=== PATIENT | male | born 1975 | race Caucasian/White ===

== ENCOUNTER 2018-04-08 19:44 | Emergency (ER) | payer BC, OTHER ==
[~2018-04-08] VITALS: Ht 198.1 cm; Wt 99.8 kg
--- NOTE | ~2018-04-08 | EKG ---
[address] [address] ELECTROCARDIOGRAM REPORT Name: ARACELI GONZALEZ Room #: DEP [facility]#: [id number] Admission: 04/08/18 Attend Phys: Discharge: 04/08/18 Date of : 79 Report #: [id number] THIS REPORT FOR: //name// [facility] ED Test Date: 2018-04-08 Test Time: 20:17:11 Pat Name: ARACELI GONZALEZ Department: Room: Gender: M [employer]: DOMINIK : 1975 Requested By: Monty Jiménez Order Number: [id number] MD: Galileo Farias Measurements Intervals [place] Rate: 106 P: 49 UT: 163 QRS: 70 QRSD: 93 T: 39 QT: 325 QTc: 432 Interpretive Statements Sinus tachycardia Otherwise no significant abnormality Baseline wander in lead(s) V1 Compared to ECG 01/23/2016 02:06:01 No significant change was found Electronically Signed On 04-09-2018 8:22:25 CDT by Galileo Farias [email or web address] <ELECTRONICALLY SIGNED> By: Galileo Farias MD, [facility] [id number] Galileo Farias MD, [facility] /EPI
[~2018-04-08 19:44] MED LIST: LANTUS100 UNIT/M SUBQ; PRINIVIL20 M1 PO; VITAMIN E400 UNIT PO
[2018-04-08 20:30] LABS: ABSOLUTE NEUTROPHILS 10.3 thou/uL (1.4-8.2); BASOPHILS 0.7 % (0.0-2.0); EOSINOPHILS 1.4 % (0.0-3.0); HEMATOCRIT 46.6 % (42.0-52.0); HEMOGLOBIN 16.3 gm/dL (14.0-18.0); LYMPHOCYTES 10.4 % (24.0-44.0); MCH 32.2 pg (26.0-34.0); MCV 92.1 fL (80.0-100.0); MONOCYTES 6.5 % (1.0-8.0); PLATELET COUNT 197 thou/uL (150-400); RBC 5.06 mil/uL (4.50-6.00); RDW 13.1 % (10.5-14.5); WBC 12.7 thou/uL (4.0-11.0)
[2018-04-08 20:39] LABS: ANION GAP 11 mmol/L (7-16); BUN 10 mg/dL (7-18); CALCIUM 9.1 mg/dL (8.5-10.1); CHLORIDE 97 mmol/L (98-107); CO2 25 mmol/L (21-32); GLUCOSE 251 mg/dL (74-106); SODIUM 133 mmol/L (136-145)
[2018-04-08 20:48] LABS: ALBUMIN 3.9 g/dL (3.4-5.0); MAGNESIUM 1.8 mg/dL (1.8-2.4); SALICYLATE 7.1 mg/dL (2.8-20.0); SGOT 20 U/L (15-37); SGPT 27 U/L (30-65); TOTAL BILIRUBIN 0.5 mg/dL (<0.1-1.0); TOTAL PROTEIN 7.8 g/dL (6.4-8.2); TROPONIN-I <0.06 ng/mL (<0.06)
[2018-04-08 21:17] LABS: URINE BILIRUBIN NEGATIVE (Negative); URINE BLOOD NEGATIVE (Negative); URINE CLARITY CLEAR; URINE COLOR YELLOW; URINE GLUCOSE-RANDOM* 3+ (Negative); URINE KETONES 2+ (Negative); URINE LEUKOCYTES-REFLEX NEGATIVE (Negative); URINE NITRITE-REFLEX NEGATIVE (Negative); URINE PROTEIN (DIPSTICK) NEGATIVE (Negative); URINE SPECIFIC GRAVITY 1.025 (1.005-1.035); URINE UROBILINOGEN 0.2 E.U./dl (0.2-1.0)
[2018-04-08 21:26] LABS: AMP/METHAMP Negative (Negative); BARBITURATES Negative (Negative); BENZODIAZEPINES Negative (Negative); COCAINE POSITIVE (Negative); METHADONE Negative (Negative); OPIATES Negative (Negative); PCP Negative (Negative)
== END 2018-04-08 22:06 | disposition home or self-care (01) ==
LOC: ER 19:44
PROVIDERS: Emergency Medicine
DX: F14.10 Cocaine abuse, uncomplicated (principal); F12.10 Cannabis abuse, uncomplicated; E10.9 Type 1 diabetes mellitus without complications; R00.2 Palpitations; F17.210 Nicotine dependence, cigarettes, uncomplicated; F32.9 Major depressive disorder, single episode, unspecified